=== PATIENT | female | born 2000 | race Caucasian/White ===

== ENCOUNTER 2020-06-30 05:29 | Inpatient (IN) | payer OTHER ==
[2020-06-30 05:59] LABS: HEMOGLOBIN 11.6 gm/dl (12.3-15.3); RED BLOOD COUNT 4.21 M/UL (4.00-5.10); WHITE BLOOD COUNT 10.2 K/UL (4.5-11.0)
[2020-06-30] MEDS ORDERED: FEROSUL325 MG PO (20:41)
[2020-06-30] MEDS ORDERED: DOCUSATE SODIU250 MG PO (20:41)
[2020-06-30] MEDS ORDERED: IBUPROFEN600 MG PO (20:41)
[2020-07-01 06:45] LABS: HEMOGLOBIN 8.8 gm/dl (12.3-15.3)
== END 2020-07-02 15:29 | disposition home or self-care (01) | DRG 807 ==
LOC: OB 05:29
PROVIDERS: Obstetrics & Gynecology; ADMIT Obstetrics & Gynecology
PROC: 10E0XZZ Delivery of Products of Conception, External Approach (ICD-10-PCS; principal; 2020-06-30)
PROC: 10907ZC Drainage of Amniotic Fluid, Therapeutic from Products of Conception, Via Natural or Artificial Opening (ICD-10-PCS; 2020-06-30)
PROC: 0HQ9XZZ Repair Perineum Skin, External Approach (ICD-10-PCS; 2020-06-30)
PROC: 3E033VJ Introduction of Other Hormone into Peripheral Vein, Percutaneous Approach (ICD-10-PCS; 2020-06-30)
PROC: 4A1HXCZ Monitoring of Products of Conception, Cardiac Rate, External Approach (ICD-10-PCS; 2020-06-30)
PROC: B24BZZ4 Ultrasonography of Heart with Aorta, Transesophageal (ICD-10-PCS; 2020-06-30)
DX: O70.0 First degree perineal laceration during delivery (principal); Z37.0 Single live birth; Z3A.39 39 weeks gestation of pregnancy; Z20.822 Contact with and (suspected) exposure to COVID-19
CPT/HCPCS: ECHO; 36415; 81001; 82800; 85014; 85018; 85025; 90471; 90715; 93005; 93306; J2590; J2795; J7120; U0003

== ENCOUNTER 2020-11-12 20:34 | Emergency (ER) | payer MEDICAID ==
[~2020-11-12 20:34] MED LIST: DOCUSATE SODIU250 MG PO; FEROSUL325 MG PO; IBUPROFEN600 MG PO
[2020-11-12] MEDS ORDERED: CORTISPORIN OTI10 M1 EARLF (21:50)
== END 2020-11-12 22:02 | disposition home or self-care (01) ==
LOC: ER1 20:34
DX: H60.92 Unspecified otitis externa, left ear (principal)
CPT/HCPCS: 99282

== ENCOUNTER 2021-03-11 19:37 | Emergency (ER) | payer OTHER ==
[~2021-03-11 19:37] MED LIST changes: +CORTISPORIN OTI10 M1 EARLF
[2021-03-11] MEDS ORDERED: CEPHALEXIN500 M1 PO (22:50)
== END 2021-03-11 23:00 | disposition home or self-care (01) ==
LOC: ER1 19:37
DX: O98.511 Other viral diseases complicating pregnancy, first trimester (principal); U07.1 COVID-19; O23.41 Unspecified infection of urinary tract in pregnancy, first trimester; N39.0 Urinary tract infection, site not specified; O99.511 Diseases of the respiratory system complicating pregnancy, first trimester; J02.8 Acute pharyngitis due to other specified organisms; Z3A.14 14 weeks gestation of pregnancy
CPT/HCPCS: 0240U; 81001; 87081; 87086; 87880; 99283

== ENCOUNTER 2021-08-23 22:30 | Outpatient (CLI) | payer OTHER ==
[~2021-08-23 22:30] MED LIST changes: +CEPHALEXIN500 M1 PO
== END 2021-08-24 00:18 | disposition home or self-care (01) ==
LOC: GENOP 22:30
DX: O47.1 False labor at or after 37 completed weeks of gestation (principal); Z3A.37 37 weeks gestation of pregnancy
CPT/HCPCS: 84112; G0463

== ENCOUNTER 2021-09-01 05:46 | Inpatient (IN) | payer OTHER ==
[2021-09-01 07:04] LABS: HEMOGLOBIN 8.9 gm/dl (12.3-15.3); RED BLOOD COUNT 3.72 M/UL (4.00-5.10); WHITE BLOOD COUNT 8.2 K/UL (4.5-11.0)
[2021-09-01] MEDS ORDERED: IRON325 M1 PO ×2 (15:51→15:52)
[2021-09-01] MEDS ORDERED: COLACE 100MG C100 MG PO (16:28)
[2021-09-01] MEDS ORDERED: IBUPROFEN600 MG PO (16:28)
[2021-09-02 03:07] LABS: HEMOGLOBIN 8.7 gm/dl (12.3-15.3)
== END 2021-09-03 14:44 | disposition home or self-care (01) | DRG 807 ==
LOC: OB 05:46
PROVIDERS: ADMIT Obstetrics & Gynecology
PROC: 10E0XZZ Delivery of Products of Conception, External Approach (ICD-10-PCS; principal; 2021-09-01)
PROC: 10907ZC Drainage of Amniotic Fluid, Therapeutic from Products of Conception, Via Natural or Artificial Opening (ICD-10-PCS; 2021-09-01)
PROC: 4A1HXCZ Monitoring of Products of Conception, Cardiac Rate, External Approach (ICD-10-PCS; 2021-09-01)
PROC: 3E0234Z Introduction of Serum, Toxoid and Vaccine into Muscle, Percutaneous Approach (ICD-10-PCS; 2021-09-01)
DX: O99.02 Anemia complicating childbirth (principal); Z20.822 Contact with and (suspected) exposure to COVID-19; Z37.0 Single live birth; Z3A.39 39 weeks gestation of pregnancy; D64.9 Anemia, unspecified; Z28.310 Unvaccinated for COVID-19; Z82.49 Family history of ischemic heart disease and other diseases of the circulatory system; Z83.3 Family history of diabetes mellitus; Z23 Encounter for immunization
CPT/HCPCS: 81001; 85014; 85018; 85025; 90715; J0595; J2590